=== PATIENT | female | born 1980 | race Caucasian/White ===

== ENCOUNTER → 2019-03-03 | Outpatient (CLI) | payer BC ==
[2019-03-03 11:19] LABS: BUN/CREATININE RATIO 15; CARBON DIOXIDE 21 MMOL/L (21-32); CHLORIDE 104 MMOL/L (98-107); CREATININE SERUM 0.81 MG/DL (0.60-1.30); GFR ESTIMATED > 60; GLUCOSE 93 MG/DL (70-105); POTASSIUM 4.3 MMOL/L (3.6-5.0); SODIUM 138 MMOL/L (135-145)
[2019-03-03 11:20] LABS: ALANINE AMINOTRANSFERASE 12 U/L (0-55); ALBUMIN 4.1 GM/DL (3.2-4.5); ALKALINE PHOSPHATASE 46 U/L (40-136); BILIRUBIN,TOTAL 0.2 MG/DL (0.1-1.0); CALCIUM 9.3 MG/DL (8.5-10.1); HEMATOCRIT 37 % (35-52); HEMOGLOBIN 11.4 G/DL (11.5-16.0); MEAN CORPUSCULAR HEMOGLOBIN 22 PG (25-34); MEAN CORPUSCULAR HGB CONC 31 G/DL (32-36); MEAN CORPUSCULAR VOLUME 72 FL (80-99); TOTAL PROTEIN 7.1 GM/DL (6.4-8.2)
[2019-03-03 11:21] LABS: MEAN PLATELET VOLUME 10.8 FL (7.4-10.4); PLATELET COUNT 390 10^3/uL (130-400); RED CELL DISTRIBUTION WIDTH 17.1 % (10.0-14.5)
[2019-03-03 11:30] LABS: BASOPHILS % (AUTO) 1 % (0-10); EOSINOPHILS % (AUTO) 3 % (0-10); LYMPHOCYTES % (AUTO) 34 % (12-44); MONOCYTES % (AUTO) 6 % (0-12); NEUTROPHILS # (AUTO) 3.9 X 10^3 (1.8-7.8); NEUTROPHILS % (AUTO) 56 % (42-75)
[2019-03-03 11:31] LABS: EOSINOPHILS # (AUTO) 0.2 10^3/uL (0.0-0.3); LYMPHOCYTES # (AUTO) 2.4 X 10^3 (1.0-4.0); MONOCYTES # (AUTO) 0.4 X 10^3 (0.0-1.0)
== END ==
LOC: LAB FS 07:46
PROVIDERS: ATTEND Family Medicine
DX: Z00.00 Encounter for general adult medical examination without abnormal findings (principal)
CPT/HCPCS: 36415; 80053; 80061; 84443; 85025